=== PATIENT | male | born 1975 | race Caucasian/White ===

== ENCOUNTER 2020-02-14 12:31 | Emergency (ER) | payer OTHER ==
[2020-02-14 13:26] LABS: BASOPHIL 0.1 % (0-2); EOSINOPHIL 0 % (0-5); HCT 40.6 % (42.0-52.0); HGB 13.9 g/dl (13.2-18.0); LYMPHOCYTE 7.1 % (15-48); MCH 29.3 pg (25.0-31.0); MCHC 34.2 g/dL (32.0-36.0); MCV 85.5 fL (78.0-100.0); MONOCYTE 5.7 % (0-12); MPV 10.5 fL (6.0-9.5); NEUTROPHIL 86.6 % (41-80); NRBC 0; PLT 201 K/uL (150-400); RBC 4.75 M/uL (4.70-6.00); RDW 13.2 % (11.5-14.0); WBC 7.7 K/uL (4.0-10.5)
[2020-02-14 13:41] LABS: ALBUMIN 3.6 g/dL (3.4-5.0); BILIRUBIN - TOTAL 0.6 mg/dL (0.2-1.0); BUN/CREAT RATIO (CALC) 12.5 RATIO; CREATININE 0.8 mg/dL (0.67-1.17); GLOBULIN (CALCULATION) 3.8 g/dL; POTASSIUM 3.8 mmol/L (3.5-5.1); TOTAL PROTEIN 7.4 g/dL (6.4-8.2)
[2020-02-14 14:06] LABS: CORONAVIRUS 2019 SARS-COV-2 POSITIVE (NEGATIVE); INFLUENZA A NAA NEGATIVE (NEGATIVE)
[2020-02-14] MEDS ORDERED: VENTOLIN HFA18 GM INH ×2 (15:34→15:54)
[2020-02-14] MEDS ORDERED: HYCODAN5 ML PO ×2 (15:34→15:54)
[2020-02-14] MEDS ORDERED: PROMETHAZINE/C120 ML PO (16:09)
== END 2020-02-14 16:30 | disposition home or self-care (01) ==
LOC: FER 12:31
PROVIDERS: Emergency Medicine
DX: U07.1 COVID-19 (principal); J12.82 Pneumonia due to coronavirus disease 2019
CPT/HCPCS: 36415; 71045; 80053; 85025; U0002